=== PATIENT | female | born 2000 | race Caucasian/White ===

== ENCOUNTER 2021-02-26 17:10 | Emergency (ER) | payer MEDICAID, OTHER ==
[~2021-02-26] VITALS: Ht 165.1 cm; Wt 81.6 kg
--- NOTE | 2021-02-26 17:25 | NUR ---
Pt triaged and placed in waiting room
--- NOTE | 2021-02-26 17:30 | NUR ---
Pt walked in to ER requesting an STD test. Reports having sexual contact with someone that has h/o chlamydia and gonnorhea. Denies any symptoms. V/S stable, no acute distress noted.
[2021-02-26 17:34] VITALS: BP_SYST 129
--- NOTE | 2021-02-26 17:35 | NUR ---
ER Dr. Borja at bedside examining patient.
[2021-02-26] MEDS ORDERED: AZITHROMYCIN 250 MG TABLET PO ONE (18:00)
[2021-02-26] MEDS ORDERED: cefTRIAXone 250 MG VIAL IM ONE (18:00)
[2021-02-26] MEDS ORDERED: AZITHROMYCIN 250 MG TABLET ONE (18:13)
[2021-02-26] MEDS ORDERED: cefTRIAXone 1 GM VIAL ONE (18:22)
[2021-02-26 18:30] VITALS: BP_SYST 129
--- NOTE | 2021-02-26 18:30 | NUR ---
Patient given written and verbal discharge instructions and verbalizes understanding. ER MD discussed with patient the results and treatment provided. Patient in stable condition. ID arm band removed. No prescriptions given given. Patient educated on pain management and to follow up with PMD. Pain Scale 0. Opportunity for questions provided and answered. Medication side effect fact sheet provided.
[2021-03-02 09:42] LABS: CHLAMYDIA TRACHOMATIS NAA Positive (Negative); NEISSERIA GONORRHOEAE NAA Positive (Negative)
--- NOTE | 2021-03-02 10:43 | NUR ---
RECEIVED LAB RESULT WITH +CHYLAMDIA AND +GONORRHEA, DISCUSSED CASE WITH DR DURHAM AND PT GIVEN ABX, WILL RE-EVALUATE IF PTS SYMPTOMS HAVE RESOLVED THEN TREATED ADEQUATELY. IF STILL WITH SYMPTOMS, PT MAY NEED TO BE RE-EVALUATED. LEFT MESSAGE FOR PT AT GIVEN NUMBER [phone].
--- NOTE | 2021-03-02 11:41 | NUR ---
SPOKE WITH PT.
== END 2021-02-26 18:30 | disposition home or self-care (01) ==
LOC: SED 17:10
DX: Z20.2 Contact with and (suspected) exposure to infections with a predominantly sexual mode of transmission (principal)
CPT/HCPCS: 81002; 81025; 87491; 87591; 99283; J0696; Q0144